=== PATIENT | female | born 1965 | race Caucasian/White ===

== ENCOUNTER 2017-03-06 12:15 | Emergency (ER) | payer OTHER ==
[~2017-03-06] VITALS: Wt 75.0 kg
[2017-03-06] MEDS ORDERED: IPRATROPIUM (NEB) 0.5 MG/2.5 ML AMP NEB STA (13:22)
[2017-03-06] MEDS ORDERED: ALBUTEROL 0.083% (NEB) 2.5 MG/3 ML AMP NEB STA (13:22)
--- NOTE | 2017-03-06 13:37 | ERD ---
ER Documentation Chief Complaint Chief Complaint SOB WITH COUGH STARTED LAST NIGHT HPI This is a very pleasant 51-year-old female without significant past medical history who presents with 24 hours of symptoms including dry nonproductive cough and shortness of breath. She denies any chest pressure, no exertional symptoms, no pleuritic pain, immobilization or calf swelling. She does note recent URI type symptoms including mild nasal congestion. No fevers, no production of the cough. ROS All systems reviewed and are negative except as per history of present illness. Medications Home Meds Active Scripts Ibuprofen* (Motrin*) 800 Mg Tab, 800 MG PO Q6H Y for PAIN AND OR ELEVATED TEMP, #30 TAB Prov:ROMULO OCASIO MD 03/06/17 Albuterol Sulfate* (Ventolin HFA*) 18 Gm Hfa.aer.ad, 2 PUFF INHALATION Q4H, #1 INHALER Prov:ROMULO OCASIO MD 03/06/17 PMhx/Soc Medical and Surgical Hx: pt denies Medical Hx, pt denies Surgical Hx Hx Alcohol Use: No Hx Substance Use: No Hx Tobacco Use: No Smoking Status: Never smoker FmHx Family History: No diabetes Physical Exam Vitals Vital Signs Date Time Temp Pulse Resp B/P Pulse Ox O2 Delivery O2 Flow Rate FiO2 03/06/17 13:56 88 18 97 21 03/06/17 12:26 98.9 98 222 179/98 92 Physical Exam General: Well developed, well nourished, no acute distress Head: Normocephalic, atraumatic. Eyes: Pupils equally reactive, EOM intact ENT: Moist mucous membranes Neck: Supple, no lymphadenopathy Respiratory: Scant wheezing diffusely with good aeration, no increased work of breathing talking in full sentences Cardiovascular: RRR, no murmurs, rubs, or gallops Abdominal: Soft, non-tender, non-distended, no peritoneal signs : Deferred MSK: No edema, no unilateral swelling, 5/5 strength Neurologic: Alert and oriented, moving all extremities, normal speech, no focal weakness, no cerebellar signs Skin: No rash Psych: Normal mood Results 24 hrs Current Medications Medications (Trade) Dose Ordered Sig/Cel[place] Route PRN Reason Start Time Stop Time Status Last Admin Dose Admin Albuterol (Proventil 0.083% (Neb)) 2.5 mg ONCE STAT NEB 03/06/17 13:22 03/06/17 13:23 DC 03/06/17 13:55 Ipratropium [place] (Atrovent 0.02% (Neb)) 0.5 mg ONCE STAT NEB 03/06/17 13:22 03/06/17 13:23 DC 03/06/17 13:55 Procedures/MDM EKG, MONITORS, & DIAGNOSTIC IMAGING: Chest x-ray: I reviewed and interpreted a 1 view of the chest Mediastinum: No enlargement Cardiac silhouette: No cardiomegaly Airspace: Clear lung amaya bilaterally without evidence of pneumothorax Bones: No evidence of fracture MEDICAL DECISION MAKING: The patient presents with cough. She does have wheezing and slight hypoxia. However based on clinical exam and history this is most consistent with likely viral upper respiratory tract infection with reactive airway disease. The patient describes similar symptoms in the past. She does have a who smokes, the patient does not smoke. Consider possible underlying lung process such as reactive airway disease versus early COPD. I did recommend outpatient follow-up with primary care physician and potentially pulmonology referral. The patient has no chest pain no pleuritic pain. There is a very low pretest probability for cardiac etiology or pulmonary embolism. No indication for laboratory testing or EKG. She does not describe any chest pain or anginal equivalent. The patient will benefit from a breathing treatment and chest x-ray. If no evidence of pneumonia, outpatient treatment for viral process would be appropriate including inhaler. ER COURSE: The patient has improved symptoms after breathing treatment, good aeration, scant wheezing but dramatically improved. No evidence of pneumonia based on chest x-ray or clinical exam. No indication for antibiotics. Symptom control on an outpatient basis appropriate. I kept the patient and/or family informed of laboratory and diagnostic imaging results throughout the emergency room course. DISPOSITION PLAN: We discussed follow up with the patient's primary care doctor within 24 to 48 hours as needed. We also discussed return to the emergency room for worsening symptoms or worsening condition. Outpatient referral: [None required] Discharge Medications: Albuterol, Motrin Departure Diagnosis: Primary Impression: Acute bronchitis Bronchitis organism: unspecified organism Qualified Code: J20.9 - Acute bronchitis, unspecified organism Additional Impression: Cough Condition: Stable ROMULO OCASIO MD Mar 06, 2017 13:37
[2017-03-06] MEDS ORDERED: ALBU18HF INHALATION (14:22)
[2017-03-06] MEDS ORDERED: IBUP800T25 PO (14:22)
[2017-03-06 14:32] VITALS: PULSE 89; RESP 20
--- NOTE | 2017-03-06 14:53 | RADRPT ---
PROCEDURE: XR Chest. CLINICAL INDICATION: Asthma exacerbation. TECHNIQUE: Single frontal view of the chest was obtained. COMPARISON: None FINDINGS: The heart is normal in size. The left-sided aorta is normal. The trachea and hilar structures are normal. The lungs are clear. The diaphragms are flattened. No pleural effusion is noted. The bon y elements are normal. IMPRESSION: 1. Pulmonary hyperinflation with no evidence of an acute infiltrate. RPTAT:AAJJ Physician Eric Date Time Electronically viewed and signed by Shivam Ponce Physician on 03/06/2017 14:53 OLU/
== END 2017-03-06 14:40 | disposition home or self-care (01) ==
LOC: E/R 12:15
DX: J20.9 Acute bronchitis, unspecified (principal)
CPT/HCPCS: 71010; 94664; Z7502; Z7610